=== PATIENT | male | born 1975 | race American Indian/Alaskan Native ===

== ENCOUNTER 2018-10-17 10:11 | Emergency (ER) | payer MEDICAID, OTHER ==
[2018-10-17 10:17] VITALS: BMI 39.5
[2018-10-17] MEDS ORDERED: Sodium Chloride 0.9% 1,000 ML IV ONE ×2 (10:26→10:33)
[2018-10-17 10:30] VITALS: RESP 20; TEMP 98.3; O2SAT 96
[2018-10-17] MEDS ORDERED: Aspirin 325 mg EC Tablets PO STA (10:33)
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
[2018-10-17 11:24] LABS: BASO # 0.01 K/mm3 (0.0-2.0); BASO % 0.2 % (0.0-3.0); EOS % 0.5 % (1.5-5.0); HEMOGLOBIN 12.1 g/dL (14.0-18.0); LYMPH # 1.5 (1.2-3.4); LYMPH % 26.9 % (22.0-35.0); MEAN CELL VOLUME 82.7 fl (80.0-105.0); MEAN CORPUSCULAR HEMOGLOBIN 26.5 pg (25.0-35.0); MEAN PLATELET VOLUME 10.3 fl (7.0-11.0); MONO # 0.5 (0.1-0.6); MONO % 9.2 % (1.0-6.0); RBC 4.57 10^6/uL (3.5-6.1); RED CELL DISTRIBUTION WIDTH 13.9 % (11.5-14.5); WHITE BLOOD COUNT 5.6 10^3/uL (4.5-11.0)
[2018-10-17 11:41] LABS: TROPONIN I < 0.01 ng/mL
[2018-10-17 11:46] LABS: ALB/GLOB RATIO 1.1 (1.1-1.8); ALBUMIN 4.3 g/dL (3.0-4.8); ALT/SGPT 26 U/L (7-56); AST/SGOT 27 U/L (17-59); BLOOD UREA NITROGEN 16 mg/dL (7-21); GFR NON-AFRICAN AMERICAN > 60
[2018-10-17 11:55] LABS: URINE BILIRUBIN NEGATIVE (NEGATIVE); URINE BLOOD NEGATIVE (NEGATIVE); URINE GLUCOSE (UA) >=1000 mg/dL (NEGATIVE); URINE LEUKOCYTE ESTERASE NEGATIVE Leu/uL (NEGATIVE); URINE PROTEIN NEGATIVE mg/dL (<30 mg/dL); URINE UROBILINOGEN 0.2 E.U./dL (<1 E.U./dL)
[2018-10-17 11:58] LABS: URINE APPEARANCE CLEAR (CLEAR); URINE COLOR YELLOW (YELLOW)
[2018-10-17] MEDS ORDERED: Sodium Chloride 0.9% 1,000 ML IV STA (12:50)
--- NOTE | 2018-10-17 12:51 | RAD ---
Date of service: 10/17/2018 HISTORY: cp COMPARISON: No prior. TECHNIQUE: Chest PA and lateral FINDINGS: LUNGS: No active pulmonary disease. PLEURA: No significant pleural effusion identified. No pneumothorax apparent. CARDIOVASCULAR: No aortic atherosclerotic calcification present. Normal cardiac size. No pulmonary vascular congestion. OSSEOUS STRUCTURES: No significant abnormalities. VISUALIZED UPPER ABDOMEN: Normal. OTHER FINDINGS: None. IMPRESSION: No active disease.
[2018-10-17 13:01] VITALS: BP 147/91; PULSE 84
--- NOTE | 2018-10-17 21:37 | CARD ---
APPROVED REPORT Date of service: 10/17/2018 EKG Measurement Heart [id number] <Conclusion> Normal sinus rhythm Normal ECG
== END 2018-10-17 13:25 | disposition home or self-care (01) ==
LOC: ED 10:11
DX: E11.65 Type 2 diabetes mellitus with hyperglycemia (principal); Z79.4 Long term (current) use of insulin; Z79.84 Long term (current) use of oral hypoglycemic drugs; R07.9 Chest pain, unspecified
CPT/HCPCS: 71046; 80053; 81003; 82948; 84484; 85025; 93005; 96360; 96361; 99283; J7030